=== PATIENT | female | born 1990 | race Caucasian/White ===

== ENCOUNTER 2022-01-10 23:31 | Emergency (ER) | payer SELFPAY ==
[~2022-01-10] VITALS: Ht 162.6 cm; Wt 80.2 kg
[2022-01-10 23:34] VITALS: BP 139/95
[2022-01-11 00:20] LABS: EOSINOPHILS % 4.1 % (0.0-5.0); HEMATOCRIT. 40.1 % (36.0-48.0); HEMOGLOBIN. 13.4 g/dL (12.0-16.0); LYMPHOCYTES % 38.2 % (20.0-50.0); MEAN CORPUSCULAR HEMOGLOBIN 29.2 pg (28.0-32.0); MEAN CORPUSCULAR VOLUME 87.2 fL (81.0-99.0); MEAN PLATELET VOLUME 8.5 fl (7.4-10.4); MONOCYTES % 12.8 % (2.0-8.0); NEUTROPHILS % 43.9 % (40.0-76.0); PLATELET 206 x1000/uL (130-400); RED CELL DISTRIBUTION WIDTH 12.5 % (11.6-14.6)
[2022-01-11 00:32] LABS: CHLORIDE 104 mEq/L (98-107)
[2022-01-11 00:46] LABS: ETHANOL BLOOD < 10 mg/dL
== END 2022-01-11 08:55 | disposition left against medical advice (07) ==
LOC: ER 23:31
DX: Z53.21 Procedure and treatment not carried out due to patient leaving prior to being seen by health care provider (principal)
CPT/HCPCS: 36415; 71045; 80053; 80320; 84443; 85025; G0480